=== PATIENT | female | born 1970 | race African-American/Black ===

== ENCOUNTER 2020-08-27 23:10 | Inpatient (IN) | payer OTHER ==
[~2020-08-27] VITALS: Ht 175.3 cm; Wt 300.0 kg
[~2020-08-27 23:10] MED LIST: ATEN50TA; FER325T; GEMF-19; HYDR25TA4; LISI-709; METF-372
[2020-08-28 00:42] LABS: Basophils # (auto) 0 10 ^3/uL (0-0.2); Basophils % (auto) 0.4 % (0.0-2.0); Eosinophils # (auto) 0.1 10 ^3/uL (0-0.8); Eosinophils % (auto) 1.3 % (0.0-7.0); Monocytes # (auto) 0.4 10 ^3/uL (0-1.3)
[2020-08-28 00:44] LABS: Hematocrit 32.8 % (36.0-46.0); Hemoglobin 10.6 g/dL (12.2-16.2); Lymphocytes # (auto) 0.5 10 ^3/uL (0.4-5.4); Lymphocytes % (auto) 9.2 % (10.0-50.0); Mean Corpuscular Hemoglobin 26.9 pg (28.0-32.0); Mean Corpuscular Hgb Conc. 32.3 g/dL (32.0-36.0); Mean Corpuscular Volume 83.3 fL (80.0-100.0); Monocytes % (auto) 7.2 % (0.0-12.0); Neutrophils # (auto) 4.9 10 ^3/uL (1.6-8.6); Neutrophils % (auto) 81.9 % (37.0-80.0); Red Blood Cells 3.94 10^6/uL (4.0-5.20)
[2020-08-28 01:02] LABS: Alanine Aminotransferase 15 U/L (13-56); Albumin 2.9 g/dL (3.4-5.0); Anion Gap 2 (5-15); Aspartate Aminotransferase 6 U/L (15-37); BUN/Creatinine Ratio 19.8; Blood Urea Nitrogen 16 mg/dL (7-18); Calcium 8.6 mg/dL (8.5-10.1); Carbon Dioxide 33 mmol/L (21-32); Chloride 97 mmol/L (98-107); GFR African American 96 mL/min; GFR Non-African American 79 mL/min; Glucose 206 mg/dL (74-106); Magnesium 1.9 mg/dL (1.6-2.6); Sodium 132 mmol/L (136-145)
[2020-08-28 01:07] LABS: Alkaline Phosphatase 117 U/L (45-117); Bilirubin, Total 1.3 mg/dL (0.2-1.0); Total Protein 8.3 g/dL (6.4-8.2)
[2020-08-28 01:14] LABS: INR 1.05 (0.9-1.15); Partial Thromboplastin Time 34.7 sec (23.0-31.2)
[2020-08-28] MEDS ORDERED: AZITHROMYCIN 500MG/ 250ML 250 ML IV ONE (02:15)
[2020-08-28] MEDS ORDERED: CEFEPIME 2 GM in SODIUM CHL 0.9% 50 ML IV ONE (02:15)
[2020-08-28 03:16] LABS: Urine Amorphous Crystal FEW /hpf (None Seen); Urine Bacteria FEW /hpf (None Seen); Urine Blood Negative /uL (Negative); Urine Mucus FEW (None Seen); Urine Specific Gravity 1.012 (1.001-1.035); Urine WBC 1 /hpf (0 - 5)
[2020-08-28] MEDS ORDERED: DOCUSATE SOD 100 MG CAP PO PRN (04:45)
[2020-08-28] MEDS ORDERED: REMDESIVIR PER PHARMACY 0 ML IV SCH (04:45)
[2020-08-28] MEDS ORDERED: MORPHINE SULFATE INJECTION 2 MG/ML SYRG IV PRN (04:45)
[2020-08-28] MEDS ORDERED: ONDANSETRON HCL 4 MG/2 ML VIAL IV PRN (04:45)
[2020-08-28] MEDS ORDERED: ACETAMINOPHEN 500 MG TAB PO PRN (04:45)
[2020-08-28] MEDS ORDERED: SODIUM CHLORIDE 0.9% 1,000 ML IV SCH (04:45)
[2020-08-28] MEDS ORDERED: DEXTROSE (50%) 50ML SYRG IV PRN (04:45)
[2020-08-28] MEDS ORDERED: NITROGLYCERIN 0.4 MG SL TAB SL PRN (04:45)
[2020-08-28] MEDS: InsuLIN REG 1unit/0.01ml Soln (100units/ml) SC SCH ×3 (07:00→17:46)
[2020-08-28] MEDS: ACCU-CHEK COMFORT CURVE STRIP VI SCH ×4 (07:00→22:20)
[2020-08-28] MEDS: BUDESONIDE (INHALATION) 180 MCG IH IN SCH ×2 (10:00→18:51)
[2020-08-28] MEDS ORDERED: DOXYCYCLINE 100MG/250ML 250 ML IV SCH (10:00)
[2020-08-28] MEDS ORDERED: ENOXAPARIN SOD 40 MG/0.4 ML SYRINGE SC SCH (10:00)
[2020-08-28] MEDS: CHOLECALCIFEROL (VITD3) 2,000 UNIT CAP/TAB PO SCH (10:00)
[2020-08-28] MEDS: PANTOPRAZOLE 40 MG/10 ML VIAL INJ IV SCH (10:58)
[2020-08-28] MEDS: DexAMETHasone SOD PHOS 10MG/1ML VIAL INJ IV SCH (10:58)
[2020-08-28] MEDS: ASCORBIC ACID 1,000 MG TAB PO SCH (11:00)
[2020-08-28] MEDS: ZINC SULFATE 220mg CAP or TAB PO SCH (11:00)
[2020-08-28] MEDS: MULTIPLE VITAMIN TAB PO SCH (11:00)
[2020-08-28] MEDS: ALBUTEROL SULF HFA 90MCG INH 200DOSE IN PRN (13:31)
[2020-08-28] MEDS ORDERED: PIPERACILLIN-TAZO 4.5GM 100 ML IV ONE (14:15)
[2020-08-28] MEDS ORDERED: ASPirin 81 mg TAB PO ONE (14:15)
[2020-08-28] MEDS ORDERED: REMDESIVIR 200 MG in NS 210ml LOADING DOSE ADULT IV ONE (15:00)
[2020-08-28] MEDS ORDERED: LORazepam 2MG/ML-1ML VIAL IV PRN (15:15)
[2020-08-28] MEDS ORDERED: LORazepam 2MG/ML-1ML VIAL ONE (15:29)
[2020-08-28] MEDS ORDERED: CLOP75TA70 PO (17:07)
[2020-08-28] MEDS ORDERED: IBUP800T27 PO (17:08)
[2020-08-28] MEDS ORDERED: FURO40TA4 PO ×2 (17:08→17:19)
[2020-08-28] MEDS ORDERED: LOSA-69 PO (17:19)
[2020-08-28] MEDS ORDERED: NIFE90TA49 PO (17:19)
[2020-08-28] MEDS ORDERED: LABE300T3 PO (17:19)
[2020-08-28] MEDS ORDERED: LABETALOL HCL 200 MG TAB PO ONE (17:30)
[2020-08-28] MEDS: APIXABAN 5 MG TAB PO SCH ×2 (17:38→21:16)
[2020-08-28] MEDS: MORPHINE SULFATE 4 MG/ML SYR/VIAL IV PRN (21:15)
[2020-08-28 22:00] VITALS: BP 156/84
[2020-08-28] MEDS ORDERED: PIPERACILLIN-TAZO 4.5GM 100 ML IV SCH (22:00)
[2020-08-29] MEDS: PIPERACILLIN-TAZO 4.5GM 100 ML IV SCH ×3 (02:22→18:28)
[2020-08-29] MEDS: InsuLIN REG 1unit/0.01ml Soln (100units/ml) SC SCH ×6 (02:27→22:26)
[2020-08-29] MEDS: MORPHINE SULFATE 4 MG/ML SYR/VIAL IV PRN ×2 (03:36→10:30)
[2020-08-29 06:17] VITALS: BP 154/74
[2020-08-29] MEDS: ACCU-CHEK COMFORT CURVE STRIP VI SCH ×4 (06:49→22:00)
[2020-08-29 09:00] VITALS: BP 157/77
[2020-08-29 09:55] LABS: Basophils # (auto) 0 10 ^3/uL (0-0.2); Eosinophils # (auto) 0 10 ^3/uL (0-0.8); Hemoglobin 10.2 g/dL (12.2-16.2); Lymphocytes # (auto) 0.4 10 ^3/uL (0.4-5.4); Monocytes # (auto) 0.4 10 ^3/uL (0-1.3); Monocytes % (auto) 7.3 % (0.0-12.0); Neutrophils # (auto) 4.1 10 ^3/uL (1.6-8.6); White Blood Cell 4.8 10^3/uL (4.4-10.8)
[2020-08-29 09:58] LABS: Basophils % (auto) 0.2 % (0.0-2.0); Hematocrit 31.5 % (36.0-46.0); Lymphocytes % (auto) 7.5 % (10.0-50.0); Mean Corpuscular Hemoglobin 27.4 pg (28.0-32.0); Mean Corpuscular Hgb Conc. 32.5 g/dL (32.0-36.0); Mean Corpuscular Volume 84.4 fL (80.0-100.0); Nucleated Red Blood Cells % 0.1 %; Red Blood Cells 3.73 10^6/uL (4.0-5.20); Red Cell Distribution Width 15.2 % (11.8-14.3)
[2020-08-29] MEDS: BUDESONIDE (INHALATION) 180 MCG IH IN SCH ×2 (10:00→19:23)
[2020-08-29] MEDS: DexAMETHasone SOD PHOS 10MG/1ML VIAL INJ IV SCH (10:12)
[2020-08-29] MEDS: PANTOPRAZOLE 40 MG/10 ML VIAL INJ IV SCH (10:13)
[2020-08-29] MEDS: ASPirin 81 mg TAB PO SCH (10:19)
[2020-08-29 10:20] LABS: Albumin 2.6 g/dL (3.4-5.0); Calcium 8.9 mg/dL (8.5-10.1); Potassium 4.4 mmol/L (3.5-5.1)
[2020-08-29] MEDS: ZINC SULFATE 220mg CAP or TAB PO SCH (10:20)
[2020-08-29] MEDS: APIXABAN 5 MG TAB PO SCH ×2 (10:22→22:25)
[2020-08-29] MEDS: MULTIPLE VITAMIN TAB PO SCH (10:22)
[2020-08-29 10:23] LABS: BUN/Creatinine Ratio 23.9; Bilirubin, Total 0.8 mg/dL (0.2-1.0); Total Protein 8.1 g/dL (6.4-8.2)
[2020-08-29] MEDS: ASCORBIC ACID 1,000 MG TAB PO SCH (10:25)
[2020-08-29] MEDS: CHOLECALCIFEROL (VITD3) 2,000 UNIT CAP/TAB PO SCH (10:26)
[2020-08-29] MEDS: LABETALOL HCL 200 MG TAB PO SCH (10:29)
[2020-08-29 13:00] VITALS: BP 165/64
[2020-08-29] MEDS: ALBUTEROL SULF HFA 90MCG INH 200DOSE IN PRN ×2 (14:18→19:23)
[2020-08-29] MEDS: hydrALAZINE HCL 20 MG/ML VL IV PRN (14:26)
[2020-08-29 14:54] VITALS: BP 161/87
[2020-08-29 15:15] VITALS: BP 170/79
[2020-08-29] MEDS ORDERED: LABETALOL HCL 5 MG/ML 4ML SYRINGE IV ONE ×2 (15:30→16:12)
[2020-08-29] MEDS: REMDESIVIR 100 MG in SODIUM CHL 0.9% 250 ML IV SCH (16:30)
[2020-08-29 22:00] VITALS: BP 156/96
[2020-08-30] MEDS: LORazepam 2MG/ML-1ML VIAL IV PRN ×3 (00:56→22:26)
[2020-08-30] MEDS: PIPERACILLIN-TAZO 4.5GM 100 ML IV SCH ×3 (02:00→17:41)
[2020-08-30] MEDS: MORPHINE SULFATE 4 MG/ML SYR/VIAL IV PRN ×3 (02:50→18:12)
[2020-08-30 05:00] VITALS: BP 156/76
[2020-08-30] MEDS: BUDESONIDE (INHALATION) 180 MCG IH IN SCH ×2 (06:17→20:36)
[2020-08-30] MEDS: ALBUTEROL SULF HFA 90MCG INH 200DOSE IN PRN ×2 (06:17→20:36)
[2020-08-30 06:45] LABS: Potassium 4.6 mmol/L (3.5-5.1)
[2020-08-30] MEDS: InsuLIN REG 1unit/0.01ml Soln (100units/ml) SC SCH ×4 (06:49→22:00)
[2020-08-30] MEDS: ACCU-CHEK COMFORT CURVE STRIP VI SCH ×4 (06:50→22:00)
[2020-08-30 06:53] LABS: Albumin 2.6 g/dL (3.4-5.0); BUN/Creatinine Ratio 27.8; Bilirubin, Total 0.8 mg/dL (0.2-1.0); Calcium 8.9 mg/dL (8.5-10.1); Total Protein 7.8 g/dL (6.4-8.2)
[2020-08-30 08:00] VITALS: BP 151/77
[2020-08-30] MEDS: DexAMETHasone SOD PHOS 10MG/1ML VIAL INJ IV SCH (09:43)
[2020-08-30] MEDS: PANTOPRAZOLE 40 MG/10 ML VIAL INJ IV SCH (09:44)
[2020-08-30] MEDS: LABETALOL HCL 200 MG TAB PO SCH (09:47)
[2020-08-30] MEDS: CHOLECALCIFEROL (VITD3) 2,000 UNIT CAP/TAB PO SCH (09:48)
[2020-08-30] MEDS: ZINC SULFATE 220mg CAP or TAB PO SCH (09:48)
[2020-08-30] MEDS: ASCORBIC ACID 1,000 MG TAB PO SCH (09:49)
[2020-08-30] MEDS: ASPirin 81 mg TAB PO SCH (09:49)
[2020-08-30] MEDS: APIXABAN 5 MG TAB PO SCH ×2 (09:49→22:25)
[2020-08-30] MEDS: MULTIPLE VITAMIN TAB PO SCH (09:49)
[2020-08-30 12:00] VITALS: BP 144/68
[2020-08-30] MEDS ORDERED: FUROSEMIDE 20 MG/2 ML VIAL IV ONE (12:15)
[2020-08-30] MEDS: REMDESIVIR 100 MG in SODIUM CHL 0.9% 250 ML IV SCH (15:21)
[2020-08-30] MEDS: hydrALAZINE HCL 20 MG/ML VL IV PRN (15:46)
[2020-08-30 17:00] VITALS: BP 168/76
[2020-08-30] MEDS: FUROSEMIDE 20 MG/2 ML VIAL IV SCH (17:40)
[2020-08-30 22:00] VITALS: BP 168/82
[2020-08-31] MEDS: hydrALAZINE HCL 20 MG/ML VL IV PRN ×3 (01:03→18:16)
[2020-08-31] MEDS: MORPHINE SULFATE 4 MG/ML SYR/VIAL IV PRN ×2 (01:03→12:17)
[2020-08-31] MEDS: PIPERACILLIN-TAZO 4.5GM 100 ML IV SCH ×3 (02:00→20:36)
[2020-08-31 05:00] VITALS: BP 154/95
[2020-08-31] MEDS: FUROSEMIDE 20 MG/2 ML VIAL IV SCH (06:00)
[2020-08-31] MEDS: InsuLIN REG 1unit/0.01ml Soln (100units/ml) SC SCH ×4 (06:49→21:59)
[2020-08-31] MEDS: ACCU-CHEK COMFORT CURVE STRIP VI SCH ×4 (06:52→22:18)
[2020-08-31 08:00] VITALS: BP 165/78
[2020-08-31 08:48] VITALS: BP 165/78
[2020-08-31] MEDS: PANTOPRAZOLE 40 MG/10 ML VIAL INJ IV SCH (10:14)
[2020-08-31] MEDS: ASPirin 81 mg TAB PO SCH (10:15)
[2020-08-31] MEDS: ASCORBIC ACID 1,000 MG TAB PO SCH (10:16)
[2020-08-31] MEDS: MULTIPLE VITAMIN TAB PO SCH (10:16)
[2020-08-31] MEDS: ZINC SULFATE 220mg CAP or TAB PO SCH (10:16)
[2020-08-31] MEDS: APIXABAN 5 MG TAB PO SCH ×2 (10:16→22:22)
[2020-08-31] MEDS: CHOLECALCIFEROL (VITD3) 2,000 UNIT CAP/TAB PO SCH (10:17)
[2020-08-31] MEDS: LABETALOL HCL 200 MG TAB PO SCH (10:21)
[2020-08-31] MEDS: DexAMETHasone SOD PHOS 10MG/1ML VIAL INJ IV SCH (10:21)
[2020-08-31] MEDS: BUDESONIDE (INHALATION) 180 MCG IH IN SCH ×2 (10:29→18:10)
[2020-08-31 10:30] LABS: Albumin 2.6 g/dL (3.4-5.0); Potassium 4.3 mmol/L (3.5-5.1)
[2020-08-31] MEDS: ALBUTEROL SULF HFA 90MCG INH 200DOSE IN PRN (10:30)
[2020-08-31 10:34] LABS: BUN/Creatinine Ratio 26.8; Bilirubin, Total 1.4 mg/dL (0.2-1.0); Total Protein 7.7 g/dL (6.4-8.2)
[2020-08-31 12:00] VITALS: BP 181/75
[2020-08-31] MEDS: LORazepam 2MG/ML-1ML VIAL IV PRN (13:24)
[2020-08-31 17:00] VITALS: BP 168/90
[2020-08-31] MEDS: REMDESIVIR 100 MG in SODIUM CHL 0.9% 250 ML IV SCH (18:00)
[2020-08-31] MEDS: FUROSEMIDE 40 MG/4 ML VIAL IV SCH (20:36)
[2020-08-31 22:00] VITALS: BP 186/101
[2020-09-01] MEDS: PIPERACILLIN-TAZO 4.5GM 100 ML IV SCH ×3 (02:05→17:44)
[2020-09-01] MEDS: hydrALAZINE HCL 20 MG/ML VL IV PRN (04:26)
[2020-09-01] MEDS: LORazepam 2MG/ML-1ML VIAL IV PRN (04:59)
[2020-09-01 05:40] VITALS: BP 151/83
[2020-09-01 05:58] LABS: Basophils # (auto) 0 10 ^3/uL (0-0.2); Basophils % (auto) 0.3 % (0.0-2.0); Eosinophils # (auto) 0 10 ^3/uL (0-0.8); Eosinophils % (auto) 0.4 % (0.0-7.0); Hematocrit 28.9 % (36.0-46.0); Hemoglobin 9.3 g/dL (12.2-16.2); Lymphocytes # (auto) 0.6 10 ^3/uL (0.4-5.4); Lymphocytes % (auto) 12.6 % (10.0-50.0); Mean Corpuscular Hgb Conc. 32.2 g/dL (32.0-36.0); Monocytes # (auto) 0.5 10 ^3/uL (0-1.3); Monocytes % (auto) 10.9 % (0.0-12.0); Neutrophils # (auto) 3.5 10 ^3/uL (1.6-8.6); Neutrophils % (auto) 75.8 % (37.0-80.0); Nucleated Red Blood Cells % 0.2 %; Red Blood Cells 3.43 10^6/uL (4.0-5.20); Red Cell Distribution Width 15.6 % (11.8-14.3); White Blood Cell 4.7 10^3/uL (4.4-10.8)
[2020-09-01 06:11] LABS: Potassium 4.6 mmol/L (3.5-5.1)
[2020-09-01 06:25] LABS: Albumin 2.5 g/dL (3.4-5.0); Bilirubin, Total 1.1 mg/dL (0.2-1.0); CRP High Sensitivity 13.1 mg/dL (< 0.3); Total Protein 7.5 g/dL (6.4-8.2)
[2020-09-01] MEDS: ACCU-CHEK COMFORT CURVE STRIP VI SCH ×4 (06:27→21:01)
[2020-09-01] MEDS: InsuLIN REG 1unit/0.01ml Soln (100units/ml) SC SCH ×4 (06:27→21:02)
[2020-09-01] MEDS: FUROSEMIDE 40 MG/4 ML VIAL IV SCH ×3 (06:27→17:10)
[2020-09-01 08:00] VITALS: BP 151/78
[2020-09-01] MEDS: BUDESONIDE (INHALATION) 180 MCG IH IN SCH ×2 (10:00→18:00)
[2020-09-01] MEDS: PANTOPRAZOLE 40 MG/10 ML VIAL INJ IV SCH (10:12)
[2020-09-01] MEDS: ASPirin 81 mg TAB PO SCH (10:13)
[2020-09-01] MEDS: ZINC SULFATE 220mg CAP or TAB PO SCH (10:13)
[2020-09-01] MEDS: APIXABAN 5 MG TAB PO SCH ×2 (10:14→21:01)
[2020-09-01] MEDS: MULTIPLE VITAMIN TAB PO SCH (10:14)
[2020-09-01] MEDS: ASCORBIC ACID 1,000 MG TAB PO SCH (10:14)
[2020-09-01] MEDS: LABETALOL HCL 200 MG TAB PO SCH ×2 (10:14→21:04)
[2020-09-01] MEDS: DexAMETHasone SOD PHOS 10MG/1ML VIAL INJ IV SCH (11:12)
[2020-09-01] MEDS: HYDROcodone-ACET 5/325MG TAB PO PRN ×2 (11:13→20:40)
[2020-09-01] MEDS: CHOLECALCIFEROL (VITD3) 2,000 UNIT CAP/TAB PO SCH (11:13)
[2020-09-01] MEDS: REMDESIVIR 100 MG in SODIUM CHL 0.9% 250 ML IV SCH (15:28)
[2020-09-01] MEDS: MORPHINE SULFATE 4 MG/ML SYR/VIAL IV PRN (17:54)
[2020-09-02] VITALS (10 sets, daily range): BP systolic 135–168; BP diastolic 51–80
[2020-09-02] MEDS: PIPERACILLIN-TAZO 4.5GM 100 ML IV SCH ×3 (01:43→17:23)
[2020-09-02] MEDS: MORPHINE SULFATE 4 MG/ML SYR/VIAL IV PRN ×2 (06:00→17:42)
[2020-09-02] MEDS: FUROSEMIDE 40 MG/4 ML VIAL IV SCH ×2 (06:10→17:23)
[2020-09-02 06:15] LABS: Basophils # (auto) 0 10 ^3/uL (0-0.2); Basophils % (auto) 0.5 % (0.0-2.0); Eosinophils # (auto) 0 10 ^3/uL (0-0.8); Hematocrit 28.6 % (36.0-46.0); Hemoglobin 9.1 g/dL (12.2-16.2); Lymphocytes # (auto) 0.5 10 ^3/uL (0.4-5.4); Lymphocytes % (auto) 11.9 % (10.0-50.0); Mean Corpuscular Hemoglobin 27.1 pg (28.0-32.0); Mean Corpuscular Hgb Conc. 31.7 g/dL (32.0-36.0); Mean Corpuscular Volume 85.3 fL (80.0-100.0); Monocytes # (auto) 0.5 10 ^3/uL (0-1.3); Monocytes % (auto) 10.8 % (0.0-12.0); Neutrophils # (auto) 3.3 10 ^3/uL (1.6-8.6); Neutrophils % (auto) 75.8 % (37.0-80.0); Nucleated Red Blood Cells % 0.2 %; Red Blood Cells 3.35 10^6/uL (4.0-5.20); Red Cell Distribution Width 15.5 % (11.8-14.3); White Blood Cell 4.4 10^3/uL (4.4-10.8)
[2020-09-02 06:25] LABS: Potassium 4.8 mmol/L (3.5-5.1)
[2020-09-02 06:33] LABS: BUN/Creatinine Ratio 34.9; Calcium 9.3 mg/dL (8.5-10.1)
[2020-09-02] MEDS: InsuLIN REG 1unit/0.01ml Soln (100units/ml) SC SCH ×4 (06:53→23:05)
[2020-09-02] MEDS: ACCU-CHEK COMFORT CURVE STRIP VI SCH ×4 (06:54→22:55)
[2020-09-02] MEDS: DexAMETHasone SOD PHOS 10MG/1ML VIAL INJ IV SCH (10:10)
[2020-09-02] MEDS: ZINC SULFATE 220mg CAP or TAB PO SCH (10:10)
[2020-09-02] MEDS: BUDESONIDE (INHALATION) 180 MCG IH IN SCH (10:10)
[2020-09-02] MEDS: PANTOPRAZOLE 40 MG/10 ML VIAL INJ IV SCH (10:10)
[2020-09-02] MEDS: ASPirin 81 mg TAB PO SCH (10:10)
[2020-09-02] MEDS: CHOLECALCIFEROL (VITD3) 2,000 UNIT CAP/TAB PO SCH (10:11)
[2020-09-02] MEDS: LABETALOL HCL 200 MG TAB PO SCH ×3 (10:11→22:54)
[2020-09-02] MEDS: MULTIPLE VITAMIN TAB PO SCH (10:11)
[2020-09-02] MEDS: ASCORBIC ACID 1,000 MG TAB PO SCH (10:11)
[2020-09-02] MEDS: APIXABAN 5 MG TAB PO SCH ×2 (10:11→22:54)
[2020-09-02] MEDS: LORazepam 2MG/ML-1ML VIAL IV PRN (23:06)
[2020-09-03] VITALS: BP 162/84
[2020-09-03] MEDS: PIPERACILLIN-TAZO 4.5GM 100 ML IV SCH ×3 (02:02→17:46)
[2020-09-03] MEDS: ACCU-CHEK COMFORT CURVE STRIP VI SCH ×4 (06:41→22:01)
[2020-09-03] MEDS: FUROSEMIDE 40 MG/4 ML VIAL IV SCH ×2 (06:41→17:46)
[2020-09-03 06:42] VITALS: BP 134/56
[2020-09-03] MEDS: InsuLIN REG 1unit/0.01ml Soln (100units/ml) SC SCH ×4 (06:42→22:10)
[2020-09-03 08:00] VITALS: BP 141/71
[2020-09-03] MEDS: BUDESONIDE (INHALATION) 180 MCG IH IN SCH ×2 (10:00→10:25)
[2020-09-03] MEDS: DexAMETHasone SOD PHOS 10MG/1ML VIAL INJ IV SCH (10:25)
[2020-09-03] MEDS: PANTOPRAZOLE 40 MG/10 ML VIAL INJ IV SCH (10:25)
[2020-09-03] MEDS: MULTIPLE VITAMIN TAB PO SCH (10:26)
[2020-09-03] MEDS: ASCORBIC ACID 1,000 MG TAB PO SCH (10:26)
[2020-09-03] MEDS: ZINC SULFATE 220mg CAP or TAB PO SCH (10:26)
[2020-09-03] MEDS: ASPirin 81 mg TAB PO SCH (10:26)
[2020-09-03] MEDS: CHOLECALCIFEROL (VITD3) 2,000 UNIT CAP/TAB PO SCH (10:26)
[2020-09-03] MEDS: APIXABAN 5 MG TAB PO SCH ×2 (10:26→22:00)
[2020-09-03] MEDS: LABETALOL HCL 200 MG TAB PO SCH ×2 (10:27→22:00)
[2020-09-03] MEDS: LORazepam 2MG/ML-1ML VIAL IV PRN ×2 (12:40→19:41)
[2020-09-03 16:00] VITALS: BP 160/73
[2020-09-04] VITALS: BP 144/70
[2020-09-04] MEDS: PIPERACILLIN-TAZO 4.5GM 100 ML IV SCH ×3 (01:56→18:00)
[2020-09-04] MEDS: FUROSEMIDE 40 MG/4 ML VIAL IV SCH (06:37)
[2020-09-04] MEDS: InsuLIN REG 1unit/0.01ml Soln (100units/ml) SC SCH ×4 (06:38→22:03)
[2020-09-04] MEDS: ACCU-CHEK COMFORT CURVE STRIP VI SCH ×4 (06:38→22:02)
[2020-09-04 07:42] VITALS: BP 132/51
[2020-09-04 08:00] VITALS: BP 140/64
[2020-09-04] MEDS: LABETALOL HCL 200 MG TAB PO SCH ×2 (10:00→22:02)
[2020-09-04] MEDS: MULTIPLE VITAMIN TAB PO SCH (10:00)
[2020-09-04] MEDS: ZINC SULFATE 220mg CAP or TAB PO SCH (10:00)
[2020-09-04] MEDS: PANTOPRAZOLE 40 MG/10 ML VIAL INJ IV SCH (10:00)
[2020-09-04] MEDS: ASCORBIC ACID 1,000 MG TAB PO SCH (10:00)
[2020-09-04] MEDS: BUDESONIDE (INHALATION) 180 MCG IH IN SCH ×2 (10:00→22:00)
[2020-09-04] MEDS: APIXABAN 5 MG TAB PO SCH ×2 (10:00→22:01)
[2020-09-04] MEDS: ASPirin 81 mg TAB PO SCH (10:00)
[2020-09-04] MEDS: CHOLECALCIFEROL (VITD3) 2,000 UNIT CAP/TAB PO SCH (10:00)
[2020-09-04] MEDS: DexAMETHasone SOD PHOS 10MG/1ML VIAL INJ IV SCH (10:00)
[2020-09-04 10:34] LABS: BUN/Creatinine Ratio 31.6; Calcium 8.9 mg/dL (8.5-10.1)
[2020-09-04 10:44] LABS: Basophils # (auto) 0 10 ^3/uL (0-0.2); Basophils % (auto) 0.3 % (0.0-2.0); Eosinophils # (auto) 0.2 10 ^3/uL (0-0.8); Eosinophils % (auto) 3.4 % (0.0-7.0); Hematocrit 25.1 % (36.0-46.0); Hemoglobin 8.5 g/dL (12.2-16.2); Lymphocytes # (auto) 0.6 10 ^3/uL (0.4-5.4); Lymphocytes % (auto) 12.5 % (10.0-50.0); Mean Corpuscular Hemoglobin 30.4 pg (28.0-32.0); Mean Corpuscular Hgb Conc. 33.9 g/dL (32.0-36.0); Mean Corpuscular Volume 89.7 fL (80.0-100.0); Monocytes # (auto) 0.5 10 ^3/uL (0-1.3); Monocytes % (auto) 10.9 % (0.0-12.0); Neutrophils # (auto) 3.4 10 ^3/uL (1.6-8.6); Neutrophils % (auto) 72.9 % (37.0-80.0); Nucleated Red Blood Cells % 0.3 %; Red Cell Distribution Width 15.4 % (11.8-14.3); White Blood Cell 4.7 10^3/uL (4.4-10.8)
[2020-09-04 16:00] VITALS: BP 138/69
[2020-09-04] MEDS: MORPHINE SULFATE 4 MG/ML SYR/VIAL IV PRN ×2 (16:30→22:04)
[2020-09-04 22:00] VITALS: BP 164/74
[2020-09-04 23:00] VITALS: BP 121/55
[2020-09-04] MEDS: LORazepam 2MG/ML-1ML VIAL IV PRN (23:34)
[2020-09-05] MEDS: PIPERACILLIN-TAZO 4.5GM 100 ML IV SCH ×3 (01:58→17:51)
[2020-09-05] MEDS: ACCU-CHEK COMFORT CURVE STRIP VI SCH ×4 (06:46→22:21)
[2020-09-05] MEDS: InsuLIN REG 1unit/0.01ml Soln (100units/ml) SC SCH ×4 (06:47→22:22)
[2020-09-05 08:00] VITALS: BP 154/72
[2020-09-05] MEDS: PANTOPRAZOLE 40 MG/10 ML VIAL INJ IV SCH ×2 (09:21→22:20)
[2020-09-05] MEDS: FUROSEMIDE 40 MG/4 ML VIAL IV SCH (09:23)
[2020-09-05] MEDS: DexAMETHasone SOD PHOS 10MG/1ML VIAL INJ IV SCH (09:24)
[2020-09-05] MEDS: MORPHINE SULFATE 4 MG/ML SYR/VIAL IV PRN ×3 (09:26→22:19)
[2020-09-05] MEDS: ASPirin 81 mg TAB PO SCH (09:27)
[2020-09-05] MEDS: ASCORBIC ACID 1,000 MG TAB PO SCH (09:27)
[2020-09-05] MEDS: APIXABAN 5 MG TAB PO SCH (09:28)
[2020-09-05] MEDS: ZINC SULFATE 220mg CAP or TAB PO SCH (09:28)
[2020-09-05] MEDS: CHOLECALCIFEROL (VITD3) 2,000 UNIT CAP/TAB PO SCH (09:28)
[2020-09-05] MEDS: LABETALOL HCL 200 MG TAB PO SCH ×2 (09:29→22:20)
[2020-09-05] MEDS: MULTIPLE VITAMIN TAB PO SCH (09:30)
[2020-09-05] MEDS: BUDESONIDE (INHALATION) 180 MCG IH IN SCH ×2 (09:49→22:19)
[2020-09-05 13:18] LABS: Calcium 9.5 mg/dL (8.5-10.1); Potassium 3.8 mmol/L (3.5-5.1)
[2020-09-05 15:39] VITALS: BP 153/67
[2020-09-05 18:28] VITALS: BP 146/70
[2020-09-06] VITALS: BP 151/72
[2020-09-06] MEDS: PIPERACILLIN-TAZO 4.5GM 100 ML IV SCH ×3 (02:29→17:24)
[2020-09-06 06:25] LABS: Basophils # (auto) 0 10 ^3/uL (0-0.2); Eosinophils # (auto) 0.2 10 ^3/uL (0-0.8); Hemoglobin 7.8 g/dL (12.2-16.2); Lymphocytes # (auto) 0.8 10 ^3/uL (0.4-5.4); Monocytes # (auto) 0.6 10 ^3/uL (0-1.3); Neutrophils # (auto) 3.2 10 ^3/uL (1.6-8.6); Red Blood Cells 2.68 10^6/uL (4.0-5.20); White Blood Cell 4.9 10^3/uL (4.4-10.8)
[2020-09-06 06:27] LABS: Basophils % (auto) 0.6 % (0.0-2.0); Eosinophils % (auto) 4.4 % (0.0-7.0); Hematocrit 23.2 % (36.0-46.0); Lymphocytes % (auto) 17.3 % (10.0-50.0); Mean Corpuscular Hgb Conc. 33.5 g/dL (32.0-36.0); Mean Corpuscular Volume 86.5 fL (80.0-100.0); Monocytes % (auto) 12.3 % (0.0-12.0); Neutrophils % (auto) 65.4 % (37.0-80.0); Nucleated Red Blood Cells % 0.2 %; Red Cell Distribution Width 15.8 % (11.8-14.3)
[2020-09-06] MEDS: ACCU-CHEK COMFORT CURVE STRIP VI SCH ×4 (06:31→22:45)
[2020-09-06] MEDS: InsuLIN REG 1unit/0.01ml Soln (100units/ml) SC SCH ×4 (06:32→22:45)
[2020-09-06 06:41] LABS: BUN/Creatinine Ratio 21.3; Calcium 8.7 mg/dL (8.5-10.1); Potassium 3.8 mmol/L (3.5-5.1)
[2020-09-06 07:59] VITALS: BP 139/61
[2020-09-06] MEDS: PANTOPRAZOLE 40 MG/10 ML VIAL INJ IV SCH ×2 (11:27→22:43)
[2020-09-06] MEDS: DexAMETHasone SOD PHOS 10MG/1ML VIAL INJ IV SCH (11:28)
[2020-09-06] MEDS: FUROSEMIDE 40 MG/4 ML VIAL IV SCH (11:28)
[2020-09-06] MEDS: ZINC SULFATE 220mg CAP or TAB PO SCH (11:28)
[2020-09-06] MEDS: MULTIPLE VITAMIN TAB PO SCH (11:28)
[2020-09-06] MEDS: LABETALOL HCL 200 MG TAB PO SCH ×2 (11:30→22:44)
[2020-09-06] MEDS: CHOLECALCIFEROL (VITD3) 2,000 UNIT CAP/TAB PO SCH (11:35)
[2020-09-06] MEDS: ASCORBIC ACID 1,000 MG TAB PO SCH (11:35)
[2020-09-06] MEDS: BUDESONIDE (INHALATION) 180 MCG IH IN SCH ×2 (11:37→19:35)
[2020-09-06] MEDS: MORPHINE SULFATE 4 MG/ML SYR/VIAL IV PRN ×3 (12:06→22:43)
[2020-09-06 15:59] VITALS: BP 155/64
[2020-09-06] MEDS: hydrALAZINE HCL 20 MG/ML VL IV PRN (17:38)
[2020-09-06] MEDS: ALBUTEROL SULF HFA 90MCG INH 200DOSE IN PRN (19:35)
[2020-09-07] VITALS: BP 139/66
[2020-09-07] MEDS: PIPERACILLIN-TAZO 4.5GM 100 ML IV SCH ×3 (01:53→18:30)
[2020-09-07] MEDS: ACCU-CHEK COMFORT CURVE STRIP VI SCH ×4 (06:12→22:21)
[2020-09-07] MEDS: InsuLIN REG 1unit/0.01ml Soln (100units/ml) SC SCH ×4 (06:13→22:31)
[2020-09-07 06:20] LABS: Basophils # (auto) 0 10 ^3/uL (0-0.2); Eosinophils # (auto) 0.2 10 ^3/uL (0-0.8); Hemoglobin 7.8 g/dL (12.2-16.2); Monocytes # (auto) 0.6 10 ^3/uL (0-1.3); Nucleated Red Blood Cells % 0.2 %; White Blood Cell 5.5 10^3/uL (4.4-10.8)
[2020-09-07 06:26] LABS: Basophils % (auto) 0.8 % (0.0-2.0); Eosinophils % (auto) 2.9 % (0.0-7.0); Hematocrit 23.7 % (36.0-46.0); Lymphocytes # (auto) 0.8 10 ^3/uL (0.4-5.4); Lymphocytes % (auto) 13.9 % (10.0-50.0); Mean Corpuscular Hemoglobin 27.8 pg (28.0-32.0); Mean Corpuscular Volume 84.4 fL (80.0-100.0); Monocytes % (auto) 11.6 % (0.0-12.0); Neutrophils # (auto) 3.9 10 ^3/uL (1.6-8.6); Neutrophils % (auto) 70.8 % (37.0-80.0); Red Blood Cells 2.81 10^6/uL (4.0-5.20); Red Cell Distribution Width 16.1 % (11.8-14.3)
[2020-09-07 08:00] VITALS: BP 153/61
[2020-09-07] MEDS: CHOLECALCIFEROL (VITD3) 2,000 UNIT CAP/TAB PO SCH (09:08)
[2020-09-07] MEDS: ASCORBIC ACID 1,000 MG TAB PO SCH (09:08)
[2020-09-07] MEDS: MULTIPLE VITAMIN TAB PO SCH (09:08)
[2020-09-07] MEDS: ZINC SULFATE 220mg CAP or TAB PO SCH (09:10)
[2020-09-07] MEDS: PANTOPRAZOLE 40 MG/10 ML VIAL INJ IV SCH ×2 (09:10→22:20)
[2020-09-07] MEDS: LABETALOL HCL 200 MG TAB PO SCH ×2 (09:10→22:21)
[2020-09-07] MEDS: FUROSEMIDE 40 MG/4 ML VIAL IV SCH (09:10)
[2020-09-07] MEDS: BUDESONIDE (INHALATION) 180 MCG IH IN SCH ×3 (09:13→20:26)
[2020-09-07 16:00] VITALS: BP 157/63
[2020-09-07] MEDS: ALBUTEROL SULF HFA 90MCG INH 200DOSE IN PRN (20:26)
[2020-09-08] MEDS: PIPERACILLIN-TAZO 4.5GM 100 ML IV SCH ×2 (01:51→09:32)
[2020-09-08] MEDS: ACCU-CHEK COMFORT CURVE STRIP VI SCH ×4 (06:26→20:56)
[2020-09-08] MEDS: InsuLIN REG 1unit/0.01ml Soln (100units/ml) SC SCH ×4 (06:27→21:27)
[2020-09-08] MEDS: BUDESONIDE (INHALATION) 180 MCG IH IN SCH ×2 (06:34→21:28)
[2020-09-08 06:37] LABS: Basophils # (auto) 0 10 ^3/uL (0-0.2); Eosinophils # (auto) 0.3 10 ^3/uL (0-0.8)
[2020-09-08 06:40] LABS: Basophils % (auto) 0.7 % (0.0-2.0); Eosinophils % (auto) 5.7 % (0.0-7.0); Hematocrit 24.5 % (36.0-46.0); Hemoglobin 8.2 g/dL (12.2-16.2); Lymphocytes # (auto) 0.9 10 ^3/uL (0.4-5.4); Lymphocytes % (auto) 15.4 % (10.0-50.0); Mean Corpuscular Hemoglobin 29.2 pg (28.0-32.0); Mean Corpuscular Hgb Conc. 33.3 g/dL (32.0-36.0); Mean Corpuscular Volume 87.6 fL (80.0-100.0); Monocytes # (auto) 0.7 10 ^3/uL (0-1.3); Neutrophils # (auto) 3.7 10 ^3/uL (1.6-8.6); Neutrophils % (auto) 66.2 % (37.0-80.0); Nucleated Red Blood Cells % 0.4 %; Red Cell Distribution Width 16.1 % (11.8-14.3); White Blood Cell 5.6 10^3/uL (4.4-10.8)
[2020-09-08] MEDS: ALBUTEROL SULF HFA 90MCG INH 200DOSE IN PRN (07:46)
[2020-09-08 08:00] VITALS: BP 148/68
[2020-09-08 08:43] LABS: Potassium 4.1 mmol/L (3.5-5.1)
[2020-09-08 08:53] LABS: BUN/Creatinine Ratio 15.3; Calcium 8.3 mg/dL (8.5-10.1)
[2020-09-08] MEDS: MULTIPLE VITAMIN TAB PO SCH (09:30)
[2020-09-08] MEDS: ASCORBIC ACID 1,000 MG TAB PO SCH (09:30)
[2020-09-08] MEDS: CHOLECALCIFEROL (VITD3) 2,000 UNIT CAP/TAB PO SCH (09:30)
[2020-09-08] MEDS: LABETALOL HCL 200 MG TAB PO SCH ×2 (09:30→21:26)
[2020-09-08] MEDS: ZINC SULFATE 220mg CAP or TAB PO SCH (09:30)
[2020-09-08] MEDS: FUROSEMIDE 40 MG/4 ML VIAL IV SCH (09:31)
[2020-09-08] MEDS: PANTOPRAZOLE 40 MG/10 ML VIAL INJ IV SCH ×2 (09:31→21:02)
[2020-09-08 16:00] VITALS: BP 150/67
[2020-09-08] MEDS: FERROUS SULFATE 325mg EC TAB PO SCH (18:38)
[2020-09-08] MEDS: HYDROcodone-ACET 5/325MG TAB PO PRN (21:27)
[2020-09-08] MEDS: SALINE 0.65 % NASAL SPRAY 45ML BOTTLE EACHNOSTRI SCH (21:28)
[2020-09-09] VITALS: BP 147/68
[2020-09-09] MEDS: SALINE 0.65 % NASAL SPRAY 45ML BOTTLE EACHNOSTRI SCH ×5 (03:55→22:00)
[2020-09-09] MEDS: ALBUTEROL SULF HFA 90MCG INH 200DOSE IN PRN ×2 (06:22→22:05)
[2020-09-09] MEDS: BUDESONIDE (INHALATION) 180 MCG IH IN SCH ×2 (06:22→22:05)
[2020-09-09] MEDS: ACCU-CHEK COMFORT CURVE STRIP VI SCH ×4 (07:05→22:05)
[2020-09-09] MEDS: InsuLIN REG 1unit/0.01ml Soln (100units/ml) SC SCH ×4 (07:07→21:56)
[2020-09-09 08:00] VITALS: BP 153/63
[2020-09-09] MEDS: FUROSEMIDE 40 MG/4 ML VIAL IV SCH (09:40)
[2020-09-09] MEDS: ZINC SULFATE 220mg CAP or TAB PO SCH (09:41)
[2020-09-09] MEDS: ASCORBIC ACID 1,000 MG TAB PO SCH (09:41)
[2020-09-09] MEDS: LABETALOL HCL 200 MG TAB PO SCH ×2 (09:41→22:00)
[2020-09-09] MEDS: CHOLECALCIFEROL (VITD3) 2,000 UNIT CAP/TAB PO SCH (09:41)
[2020-09-09] MEDS: MULTIPLE VITAMIN TAB PO SCH (09:41)
[2020-09-09] MEDS: FERROUS SULFATE 325mg EC TAB PO SCH ×3 (09:41→17:42)
[2020-09-09] MEDS: PANTOPRAZOLE 40 MG/10 ML VIAL INJ IV SCH ×2 (09:42→21:59)
[2020-09-09 16:00] VITALS: BP 166/80
[2020-09-09] MEDS: MORPHINE SULFATE 4 MG/ML SYR/VIAL IV PRN (20:57)
[2020-09-10] VITALS: BP 162/72
[2020-09-10] MEDS: SALINE 0.65 % NASAL SPRAY 45ML BOTTLE EACHNOSTRI SCH ×4 (06:00→22:00)
[2020-09-10 06:30] LABS: Basophils # (auto) 0 10 ^3/uL (0-0.2); Eosinophils # (auto) 0.3 10 ^3/uL (0-0.8); Hemoglobin 8.2 g/dL (12.2-16.2); Lymphocytes # (auto) 1.1 10 ^3/uL (0.4-5.4); Neutrophils # (auto) 4.3 10 ^3/uL (1.6-8.6); Nucleated Red Blood Cells % 0.1 %
[2020-09-10 06:33] LABS: Basophils % (auto) 0.7 % (0.0-2.0); Eosinophils % (auto) 4.7 % (0.0-7.0); Hematocrit 24.8 % (36.0-46.0); Lymphocytes % (auto) 16.4 % (10.0-50.0); Mean Corpuscular Hemoglobin 28.9 pg (28.0-32.0); Mean Corpuscular Hgb Conc. 33.3 g/dL (32.0-36.0); Mean Corpuscular Volume 86.8 fL (80.0-100.0); Monocytes # (auto) 0.7 10 ^3/uL (0-1.3); Monocytes % (auto) 11.3 % (0.0-12.0); Neutrophils % (auto) 66.9 % (37.0-80.0); Red Blood Cells 2.86 10^6/uL (4.0-5.20); Red Cell Distribution Width 16.3 % (11.8-14.3); White Blood Cell 6.4 10^3/uL (4.4-10.8)
[2020-09-10 06:47] LABS: BUN/Creatinine Ratio 12.5; Calcium 8.8 mg/dL (8.5-10.1); Potassium 3.4 mmol/L (3.5-5.1)
[2020-09-10] MEDS: InsuLIN REG 1unit/0.01ml Soln (100units/ml) SC SCH ×4 (06:49→22:00)
[2020-09-10] MEDS: ACCU-CHEK COMFORT CURVE STRIP VI SCH ×4 (06:53→22:00)
[2020-09-10 08:00] VITALS: BP 138/77
[2020-09-10] MEDS: FERROUS SULFATE 325mg EC TAB PO SCH ×3 (09:00→12:57)
[2020-09-10] MEDS: FUROSEMIDE 40 MG/4 ML VIAL IV SCH (09:01)
[2020-09-10] MEDS: MULTIPLE VITAMIN TAB PO SCH (09:02)
[2020-09-10] MEDS: LABETALOL HCL 200 MG TAB PO SCH ×2 (09:02→23:20)
[2020-09-10] MEDS: ZINC SULFATE 220mg CAP or TAB PO SCH (09:02)
[2020-09-10] MEDS: PANTOPRAZOLE 40 MG/10 ML VIAL INJ IV SCH ×2 (09:02→22:00)
[2020-09-10] MEDS: APIXABAN 5 MG TAB PO SCH ×2 (09:02→22:00)
[2020-09-10] MEDS: CHOLECALCIFEROL (VITD3) 2,000 UNIT CAP/TAB PO SCH (09:03)
[2020-09-10] MEDS: ASCORBIC ACID 1,000 MG TAB PO SCH (09:03)
[2020-09-10 09:27] LABS: % Iron Saturation 20.3 % (15-50)
[2020-09-10] MEDS ORDERED: POTASSIUM EFFERVESENT TAB 25 MEQ PO ONE (09:30)
[2020-09-10] MEDS: POTASSIUM EFFERVESENT TAB 25 MEQ PO SCH (10:00)
[2020-09-10] MEDS: BUDESONIDE (INHALATION) 180 MCG IH IN SCH ×2 (12:57→22:00)
[2020-09-10] MEDS ORDERED: SODIUM FERR GLUC 62.5MG/5ML 125 MG in SODIUM CHL 0.9% 100 ML IV ONE (15:00)
[2020-09-10 16:11] VITALS: BP 167/84
[2020-09-10] MEDS: hydrALAZINE HCL 20 MG/ML VL IV PRN (17:42)
[2020-09-10 18:40] VITALS: BP 167/82
[2020-09-11] VITALS: BP 159/75
[2020-09-11] MEDS: PANTOPRAZOLE 40 MG/10 ML VIAL INJ IV SCH ×3 (00:28→22:45)
[2020-09-11] MEDS: hydrALAZINE HCL 20 MG/ML VL IV PRN ×2 (00:47→22:32)
[2020-09-11] MEDS: SALINE 0.65 % NASAL SPRAY 45ML BOTTLE EACHNOSTRI SCH ×4 (06:00→17:56)
[2020-09-11] MEDS: ACCU-CHEK COMFORT CURVE STRIP VI SCH ×4 (06:24→21:58)
[2020-09-11] MEDS: InsuLIN REG 1unit/0.01ml Soln (100units/ml) SC SCH ×4 (06:37→22:28)
[2020-09-11 08:00] VITALS: BP 157/70
[2020-09-11] MEDS: BUDESONIDE (INHALATION) 180 MCG IH IN SCH ×2 (10:00→19:06)
[2020-09-11] MEDS: FUROSEMIDE 40 MG/4 ML VIAL IV SCH (10:25)
[2020-09-11] MEDS: POTASSIUM EFFERVESENT TAB 25 MEQ PO SCH (10:26)
[2020-09-11] MEDS: MULTIPLE VITAMIN TAB PO SCH (10:27)
[2020-09-11] MEDS: ASCORBIC ACID 1,000 MG TAB PO SCH (10:28)
[2020-09-11] MEDS: CHOLECALCIFEROL (VITD3) 2,000 UNIT CAP/TAB PO SCH (10:28)
[2020-09-11] MEDS: APIXABAN 5 MG TAB PO SCH ×2 (10:28→21:57)
[2020-09-11] MEDS: ZINC SULFATE 220mg CAP or TAB PO SCH (10:28)
[2020-09-11] MEDS: LABETALOL HCL 200 MG TAB PO SCH ×2 (10:30→21:58)
[2020-09-11] MEDS: ALBUTEROL SULF HFA 90MCG INH 200DOSE IN PRN ×2 (11:03→19:06)
[2020-09-11] MEDS: SODIUM FERR GLUC 62.5MG/5ML 125 MG in SODIUM CHL 0.9% 100 ML IV SCH (12:22)
[2020-09-11 16:00] VITALS: BP 152/62
[2020-09-12] VITALS: BP 140/66
[2020-09-12] MEDS: LORazepam 2MG/ML-1ML VIAL IV PRN ×2 (06:17→19:31)
[2020-09-12] MEDS: ACCU-CHEK COMFORT CURVE STRIP VI SCH ×4 (06:48→21:44)
[2020-09-12] MEDS: InsuLIN REG 1unit/0.01ml Soln (100units/ml) SC SCH ×4 (06:50→21:51)
[2020-09-12] MEDS: SALINE 0.65 % NASAL SPRAY 45ML BOTTLE EACHNOSTRI SCH ×4 (06:51→21:26)
[2020-09-12] MEDS: BUDESONIDE (INHALATION) 180 MCG IH IN SCH ×2 (10:00→19:29)
[2020-09-12] MEDS: PANTOPRAZOLE 40 MG/10 ML VIAL INJ IV SCH ×2 (10:00→22:00)
[2020-09-12] MEDS: FUROSEMIDE 40 MG/4 ML VIAL IV SCH (10:05)
[2020-09-12] MEDS: ZINC SULFATE 220mg CAP or TAB PO SCH (10:07)
[2020-09-12] MEDS: LABETALOL HCL 200 MG TAB PO SCH ×2 (10:07→21:25)
[2020-09-12] MEDS: ASCORBIC ACID 1,000 MG TAB PO SCH (10:08)
[2020-09-12] MEDS: CHOLECALCIFEROL (VITD3) 2,000 UNIT CAP/TAB PO SCH (10:08)
[2020-09-12] MEDS: MULTIPLE VITAMIN TAB PO SCH (10:08)
[2020-09-12] MEDS: POTASSIUM EFFERVESENT TAB 25 MEQ PO SCH (10:09)
[2020-09-12] MEDS: APIXABAN 5 MG TAB PO SCH ×2 (10:09→21:25)
[2020-09-12] MEDS ORDERED: cefTRIAXone 1GM/50ML D5W 50 ML IV ONE (11:30)
[2020-09-12 14:33] LABS: Basophils # (auto) 0 10 ^3/uL (0-0.2); Basophils % (auto) 0.5 % (0.0-2.0); Eosinophils # (auto) 0.2 10 ^3/uL (0-0.8); Eosinophils % (auto) 2.7 % (0.0-7.0); Hemoglobin 9.2 g/dL (12.2-16.2); Lymphocytes # (auto) 0.9 10 ^3/uL (0.4-5.4); Lymphocytes % (auto) 9.9 % (10.0-50.0); Mean Corpuscular Hemoglobin 28.4 pg (28.0-32.0); Mean Corpuscular Hgb Conc. 32.8 g/dL (32.0-36.0); Mean Corpuscular Volume 86.4 fL (80.0-100.0); Monocytes # (auto) 0.7 10 ^3/uL (0-1.3); Monocytes % (auto) 7.5 % (0.0-12.0); Neutrophils % (auto) 79.4 % (37.0-80.0); Nucleated Red Blood Cells % 0.2 %; Red Blood Cells 3.24 10^6/uL (4.0-5.20); Red Cell Distribution Width 17.4 % (11.8-14.3); White Blood Cell 8.8 10^3/uL (4.4-10.8)
[2020-09-12 16:00] VITALS: BP 152/79
[2020-09-12] MEDS: SODIUM FERR GLUC 62.5MG/5ML 125 MG in SODIUM CHL 0.9% 100 ML IV SCH (16:20)
[2020-09-12] MEDS: hydrALAZINE HCL 20 MG/ML VL IV PRN (17:37)
[2020-09-12] MEDS: ALBUTEROL SULF HFA 90MCG INH 200DOSE IN PRN (19:28)
[2020-09-13] VITALS: BP 148/68
[2020-09-13] MEDS: SALINE 0.65 % NASAL SPRAY 45ML BOTTLE EACHNOSTRI SCH ×4 (06:05→23:19)
[2020-09-13 06:09] LABS: Potassium 3.4 mmol/L (3.5-5.1)
[2020-09-13 06:14] LABS: BUN/Creatinine Ratio 9.4; Calcium 9.1 mg/dL (8.5-10.1); Magnesium 1.6 mg/dL (1.6-2.6)
[2020-09-13] MEDS: ACCU-CHEK COMFORT CURVE STRIP VI SCH ×4 (06:26→22:00)
[2020-09-13] MEDS: InsuLIN REG 1unit/0.01ml Soln (100units/ml) SC SCH ×4 (07:01→23:23)
[2020-09-13 08:00] VITALS: BP 151/69
[2020-09-13] MEDS: cefTRIAXone 1GM/50ML D5W 50 ML IV SCH (08:44)
[2020-09-13] MEDS: FUROSEMIDE 40 MG/4 ML VIAL IV SCH (08:45)
[2020-09-13] MEDS: ZINC SULFATE 220mg CAP or TAB PO SCH (08:46)
[2020-09-13] MEDS: LABETALOL HCL 200 MG TAB PO SCH ×2 (08:47→23:21)
[2020-09-13] MEDS: POTASSIUM EFFERVESENT TAB 25 MEQ PO SCH (08:47)
[2020-09-13] MEDS: APIXABAN 5 MG TAB PO SCH ×2 (08:48→23:19)
[2020-09-13] MEDS: ASCORBIC ACID 1,000 MG TAB PO SCH (08:50)
[2020-09-13] MEDS: MULTIPLE VITAMIN TAB PO SCH (08:50)
[2020-09-13] MEDS: CHOLECALCIFEROL (VITD3) 2,000 UNIT CAP/TAB PO SCH (08:50)
[2020-09-13] MEDS: BUDESONIDE (INHALATION) 180 MCG IH IN SCH ×2 (08:52→18:53)
[2020-09-13 09:54] LABS: Urine Bacteria FEW /hpf (None Seen); Urine Blood 2+ /uL (Negative); Urine Hyaline Cast FEW /lpf (0 - 2); Urine Specific Gravity 1.007 (1.001-1.035); Urine WBC 378 /hpf (0 - 5); Urine WBC Clumps PRESENT /hpf (None Seen)
[2020-09-13] MEDS: PANTOPRAZOLE 40 MG/10 ML VIAL INJ IV SCH ×2 (10:00→22:00)
[2020-09-13] MEDS: SODIUM FERR GLUC 62.5MG/5ML 125 MG in SODIUM CHL 0.9% 100 ML IV SCH (12:09)
[2020-09-13] MEDS ORDERED: MAGNESIUM SULFATE 1GM/100ML 100 ML IV ONE (12:45)
[2020-09-13] MEDS ORDERED: POTASSIUM CHL 20 Meq TABLET PO ONE (12:45)
[2020-09-13 16:30] VITALS: BP 157/72
[2020-09-13] MEDS: hydrALAZINE HCL 20 MG/ML VL IV PRN (17:14)
[2020-09-13] MEDS: ALBUTEROL SULF HFA 90MCG INH 200DOSE IN PRN (18:53)
[2020-09-13] MEDS: LORazepam 2MG/ML-1ML VIAL IV PRN (20:59)
[2020-09-14] VITALS: BP 148/64
[2020-09-14 05:46] LABS: Hematocrit 26.2 % (36.0-46.0); Hemoglobin 8.5 g/dL (12.2-16.2)
[2020-09-14 06:04] LABS: Magnesium 1.6 mg/dL (1.6-2.6); Potassium 3.4 mmol/L (3.5-5.1)
[2020-09-14] MEDS: SALINE 0.65 % NASAL SPRAY 45ML BOTTLE EACHNOSTRI SCH ×4 (06:30→22:05)
[2020-09-14] MEDS: ACCU-CHEK COMFORT CURVE STRIP VI SCH ×4 (06:30→22:02)
[2020-09-14] MEDS: InsuLIN REG 1unit/0.01ml Soln (100units/ml) SC SCH ×4 (06:31→22:04)
[2020-09-14] MEDS: ALBUTEROL SULF HFA 90MCG INH 200DOSE IN PRN (06:33)
[2020-09-14] MEDS: BUDESONIDE (INHALATION) 180 MCG IH IN SCH ×2 (06:33→22:00)
[2020-09-14 08:20] VITALS: BP 141/60
[2020-09-14] MEDS: PANTOPRAZOLE 40 MG/10 ML VIAL INJ IV SCH ×2 (10:00→22:00)
[2020-09-14] MEDS: CHOLECALCIFEROL (VITD3) 2,000 UNIT CAP/TAB PO SCH (10:00)
[2020-09-14] MEDS: cefTRIAXone 1GM/50ML D5W 50 ML IV SCH (10:12)
[2020-09-14] MEDS: FUROSEMIDE 40 MG/4 ML VIAL IV SCH (10:12)
[2020-09-14] MEDS: ZINC SULFATE 220mg CAP or TAB PO SCH (10:13)
[2020-09-14] MEDS: MULTIPLE VITAMIN TAB PO SCH (10:13)
[2020-09-14] MEDS: APIXABAN 5 MG TAB PO SCH ×2 (10:13→22:04)
[2020-09-14] MEDS: LABETALOL HCL 200 MG TAB PO SCH ×2 (10:14→22:02)
[2020-09-14] MEDS: ASCORBIC ACID 1,000 MG TAB PO SCH (10:14)
[2020-09-14] MEDS: POTASSIUM EFFERVESENT TAB 25 MEQ PO SCH (11:34)
[2020-09-14] MEDS: SODIUM FERR GLUC 62.5MG/5ML 125 MG in SODIUM CHL 0.9% 100 ML IV SCH (12:34)
[2020-09-14] MEDS ORDERED: POTASSIUM CHL 20 Meq TABLET PO ONE (15:15)
[2020-09-14] MEDS ORDERED: MAGNESIUM SULFATE 1GM/100ML 100 ML IV ONE (15:15)
[2020-09-14 17:11] VITALS: BP 141/60
[2020-09-15] VITALS: BP 157/71
[2020-09-15] MEDS: ALBUTEROL SULF HFA 90MCG INH 200DOSE IN PRN (00:16)
[2020-09-15] MEDS: MORPHINE SULFATE 4 MG/ML SYR/VIAL IV PRN (00:40)
[2020-09-15] MEDS: ACCU-CHEK COMFORT CURVE STRIP VI SCH ×3 (06:13→17:14)
[2020-09-15] MEDS: SALINE 0.65 % NASAL SPRAY 45ML BOTTLE EACHNOSTRI SCH ×2 (06:13→11:51)
[2020-09-15] MEDS: InsuLIN REG 1unit/0.01ml Soln (100units/ml) SC SCH ×3 (06:18→17:16)
[2020-09-15 06:42] LABS: BUN/Creatinine Ratio 10.3; Calcium 8.9 mg/dL (8.5-10.1); Magnesium 1.8 mg/dL (1.6-2.6); Potassium 3.7 mmol/L (3.5-5.1)
[2020-09-15 08:00] VITALS: BP 133/70
[2020-09-15] MEDS: cefTRIAXone 1GM/50ML D5W 50 ML IV SCH (09:24)
[2020-09-15] MEDS: ASCORBIC ACID 1,000 MG TAB PO SCH (09:25)
[2020-09-15] MEDS: PANTOPRAZOLE 40 MG/10 ML VIAL INJ IV SCH (09:25)
[2020-09-15] MEDS: FUROSEMIDE 40 MG/4 ML VIAL IV SCH (09:25)
[2020-09-15] MEDS: POTASSIUM EFFERVESENT TAB 25 MEQ PO SCH (09:25)
[2020-09-15] MEDS: ZINC SULFATE 220mg CAP or TAB PO SCH (09:26)
[2020-09-15] MEDS: APIXABAN 5 MG TAB PO SCH (09:26)
[2020-09-15] MEDS: LABETALOL HCL 200 MG TAB PO SCH (09:26)
[2020-09-15] MEDS: CHOLECALCIFEROL (VITD3) 2,000 UNIT CAP/TAB PO SCH (09:27)
[2020-09-15] MEDS: MULTIPLE VITAMIN TAB PO SCH (09:27)
[2020-09-15] MEDS: BUDESONIDE (INHALATION) 180 MCG IH IN SCH ×2 (09:27→09:44)
[2020-09-15] MEDS: SODIUM FERR GLUC 62.5MG/5ML 125 MG in SODIUM CHL 0.9% 100 ML IV SCH (11:51)
[2020-09-15] MEDS ORDERED: MAGNESIUM SULFATE 1GM/100ML 100 ML IV ONE (13:15)
[2020-09-15] MEDS ORDERED: PANT40TA2 PO (13:21)
[2020-09-15] MEDS ORDERED: BUDE2SUS3 IN (13:21)
[2020-09-15] MEDS ORDERED: ZINC220T6 PO (13:21)
[2020-09-15] MEDS ORDERED: CHOL1CAP47 PO (13:21)
[2020-09-15] MEDS ORDERED: ASCO10003 PO (13:21)
[2020-09-15] MEDS ORDERED: ALBUAER3 IN (13:21)
[2020-09-15] MEDS ORDERED: LEVO500T31 PO (13:21)
[2020-09-15] MEDS ORDERED: ASPI-378 PO (13:26)
[2020-09-15 15:50] VITALS: BP 156/73
== END 2020-09-15 17:00 | disposition home health service (06) | DRG 720 ==
LOC: EDBD 23:10 → ER 23:13 → TELE 23:14 → TELE-WESTW 08-28 16:01
PROVIDERS: ADMIT Nurse Practitioner Family; ATTEND Internal Medicine
PROC: XW033E5 Introduction of Remdesivir Anti-infective into Peripheral Vein, Percutaneous Approach, New Technology Group 5 (ICD-10-PCS; 2020-08-28)
PROC: XW13325 Transfusion of Convalescent Plasma (Nonautologous) into Peripheral Vein, Percutaneous Approach, New Technology Group 5 (ICD-10-PCS; principal; 2020-08-29)
PROC: 5A09357 Assistance with Respiratory Ventilation, Less than 24 Consecutive Hours, Continuous Positive Airway Pressure (ICD-10-PCS; 2020-08-31)
PROC: 5A09357 Assistance with Respiratory Ventilation, Less than 24 Consecutive Hours, Continuous Positive Airway Pressure (ICD-10-PCS; 2020-09-01)
PROC: 5A09357 Assistance with Respiratory Ventilation, Less than 24 Consecutive Hours, Continuous Positive Airway Pressure (ICD-10-PCS; 2020-09-03)
PROC: 5A09357 Assistance with Respiratory Ventilation, Less than 24 Consecutive Hours, Continuous Positive Airway Pressure (ICD-10-PCS; 2020-09-04)
PROC: 5A09357 Assistance with Respiratory Ventilation, Less than 24 Consecutive Hours, Continuous Positive Airway Pressure (ICD-10-PCS; 2020-09-05)
PROC: 5A09357 Assistance with Respiratory Ventilation, Less than 24 Consecutive Hours, Continuous Positive Airway Pressure (ICD-10-PCS; 2020-09-06)
PROC: 5A09357 Assistance with Respiratory Ventilation, Less than 24 Consecutive Hours, Continuous Positive Airway Pressure (ICD-10-PCS; 2020-09-07)
PROC: 5A09357 Assistance with Respiratory Ventilation, Less than 24 Consecutive Hours, Continuous Positive Airway Pressure (ICD-10-PCS; 2020-09-09)
PROC: 5A09357 Assistance with Respiratory Ventilation, Less than 24 Consecutive Hours, Continuous Positive Airway Pressure (ICD-10-PCS; 2020-09-10)
PROC: 5A09357 Assistance with Respiratory Ventilation, Less than 24 Consecutive Hours, Continuous Positive Airway Pressure (ICD-10-PCS; 2020-09-11)
PROC: 5A09357 Assistance with Respiratory Ventilation, Less than 24 Consecutive Hours, Continuous Positive Airway Pressure (ICD-10-PCS; 2020-09-12)
PROC: 5A09357 Assistance with Respiratory Ventilation, Less than 24 Consecutive Hours, Continuous Positive Airway Pressure (ICD-10-PCS; 2020-09-14)
PROC: 5A09357 Assistance with Respiratory Ventilation, Less than 24 Consecutive Hours, Continuous Positive Airway Pressure (ICD-10-PCS; 2020-09-15)
DX: A41.89 Other specified sepsis (principal); U07.1 COVID-19; E43 Unspecified severe protein-calorie malnutrition; J96.21 Acute and chronic respiratory failure with hypoxia; J12.82 Pneumonia due to coronavirus disease 2019; G93.41 Metabolic encephalopathy; E66.01 Morbid (severe) obesity due to excess calories; J44.1 Chronic obstructive pulmonary disease with (acute) exacerbation; Z68.45 Body mass index [BMI] 70 or greater, adult; E11.65 Type 2 diabetes mellitus with hyperglycemia; I11.0 Hypertensive heart disease with heart failure; I50.32 Chronic diastolic (congestive) heart failure; J44.0 Chronic obstructive pulmonary disease with (acute) lower respiratory infection; R65.20 Severe sepsis without septic shock; N39.0 Urinary tract infection, site not specified; B96.20 Unspecified Escherichia coli [E. coli] as the cause of diseases classified elsewhere; D63.8 Anemia in other chronic diseases classified elsewhere; D89.839 Cytokine release syndrome, grade unspecified; Z88.8 Allergy status to other drugs, medicaments and biological substances
CPT/HCPCS: 36415; 36600; 51702; 71045; 80048; 80053; 81001; 82270; 82728; 82805; 82962; 83036; 83540; 83550; 83605; 83615; 83735; 83880; 84132; 84484; 85014; 85018; 85025; 85379; 85610; 85730; 86141; 86850; 86900; 86901; 87040; 87086; 87088; 87186; 87426; 93005; 94640; 94660; 96365; 96366; 96367; 96375; 97110; C9113; G0378; J0696; J1100; J1815; J2405; J2543; J3490

== ENCOUNTER 2021-01-06 18:54 | Observation (INO) | payer OTHER ==
[~2021-01-06] VITALS: Ht 172.7 cm; Wt 343.4 kg
[~2021-01-06 18:54] MED LIST changes: +ALBUAER3 IN; +ASCO10003 PO; +ASPI-378 PO; +BUDE2SUS3 IN; +CHOL1CAP47 PO; +CLOP75TA70 PO; +FURO40TA4 PO; +IBUP800T27 PO; +LABE300T3 PO; +LEVO500T31 PO; +LOSA-69 PO; +NIFE90TA49 PO; +PANT40TA2 PO; +ZINC220T6 PO
[2021-01-06 22:54] LABS: Basophils # (auto) 0 10 ^3/uL (0-0.2); Basophils % (auto) 0.7 % (0.0-2.0); Eosinophils # (auto) 0.5 10 ^3/uL (0-0.8); Hematocrit 32.1 % (36.0-46.0); Hemoglobin 10.7 g/dL (12.2-16.2); Lymphocytes # (auto) 0.8 10 ^3/uL (0.4-5.4); Lymphocytes % (auto) 13.6 % (10.0-50.0); Mean Corpuscular Hemoglobin 29.8 pg (28.0-32.0); Mean Corpuscular Hgb Conc. 33.3 g/dL (32.0-36.0); Mean Corpuscular Volume 89.4 fL (80.0-100.0); Monocytes # (auto) 0.4 10 ^3/uL (0-1.3); Monocytes % (auto) 6.7 % (0.0-12.0); Neutrophils # (auto) 4.1 10 ^3/uL (1.6-8.6); Nucleated Red Blood Cells % 0.2 %; Platelet Count (auto) 381 10^3/uL (140-450); Red Blood Cells 3.59 10^6/uL (4.0-5.20); White Blood Cell 5.8 10^3/uL (4.4-10.8)
[2021-01-06 23:18] LABS: Calcium 8.7 mg/dL (8.5-10.1); Potassium 3.7 mmol/L (3.5-5.1)
[2021-01-06 23:26] LABS: BUN/Creatinine Ratio 17.6; Bilirubin, Total 0.8 mg/dL (0.2-1.0); CRP High Sensitivity 6.04 mg/dL (< 0.3); Total Protein 7.1 g/dL (6.4-8.2)
[2021-01-07] MEDS ORDERED: HYDROcodone-ACET 7.5/325MG TAB PO ONE (00:15)
[2021-01-07] MEDS ORDERED: CLINDAMYCIN 600MG IV 50 ML IV ONE (03:15)
[2021-01-07] MEDS ORDERED: VANCOMYCIN 1GM/250ML 250 ML IV ONE (03:15)
[2021-01-07 05:43] LABS: Urine Bacteria FEW /hpf (None Seen); Urine Blood 3+ /uL (Negative); Urine Specific Gravity 1.011 (1.001-1.035); Urine WBC 4 /hpf (0 - 5)
[2021-01-07] MEDS: HYDROcodone-ACET 7.5/325MG TAB PO PRN ×3 (08:27→23:20)
[2021-01-07] MEDS ORDERED: CEFTRIAXONE SODIUM 2 GM in D5W 5% 50 ML IV ONE (12:00)
[2021-01-07] MEDS ORDERED: CLINDAMYCIN 900MG IV 50 ML IV ONE (12:00)
[2021-01-07] MEDS ORDERED: LABE300T3 PO (15:45)
[2021-01-07] MEDS ORDERED: INSU1INJ19 SC (15:45)
[2021-01-07] MEDS ORDERED: CLOP75TA28 PO (15:45)
[2021-01-07] MEDS ORDERED: POTA10TA32 PO (15:45)
[2021-01-07] MEDS ORDERED: INSU100I27 SC (15:45)
[2021-01-07] MEDS ORDERED: MORPHINE SULF INJ 2 MG/ML SYRINGE 1ML IV PRN (16:45)
[2021-01-07] MEDS ORDERED: MORPHINE SULFATE 4 MG/ML SYR/VIAL IV PRN (16:45)
[2021-01-07] MEDS ORDERED: ONDANSETRON HCL 4 MG/2 ML VIAL IV PRN (16:45)
[2021-01-07] MEDS: SODIUM CHLORIDE 0.9% 1,000 ML IV SCH (16:45)
[2021-01-07] MEDS ORDERED: NITROGLYCERIN 0.4 MG SL TAB SL PRN (16:45)
[2021-01-07] MEDS ORDERED: DOCUSATE CALCIUM 240 MG CAP PO PRN (16:45)
[2021-01-07] MEDS ORDERED: LORazepam 0.5 MG TAB PO PRN (16:45)
[2021-01-07] MEDS ORDERED: ACETAMINOPHEN 500 MG TAB PO PRN (16:45)
[2021-01-07] MEDS ORDERED: TETANUS-DIPTH-ACEL PERTUSSIS 0.5ML SYR Tdap IM ONE (16:45)
[2021-01-07] MEDS ORDERED: LABETALOL HCL 5 MG/ML 4ML SYRINGE IV PRN (16:45)
[2021-01-07] MEDS ORDERED: DEXTROSE (50%) 50ML SYRG IV PRN (16:45)
[2021-01-07] MEDS: POTASSIUM CHLORIDE 8 MEQ TAB PO SCH ×2 (17:05→21:16)
[2021-01-07] MEDS: FUROSEMIDE 40 MG TAB PO SCH (18:16)
[2021-01-07 18:23] LABS: Basophils # (auto) 0 10 ^3/uL (0-0.2); Basophils % (auto) 0.2 % (0.0-2.0); Eosinophils # (auto) 0.5 10 ^3/uL (0-0.8); Eosinophils % (auto) 5.8 % (0.0-7.0); Hematocrit 31.8 % (36.0-46.0); Hemoglobin 10.5 g/dL (12.2-16.2); Lymphocytes # (auto) 0.7 10 ^3/uL (0.4-5.4); Lymphocytes % (auto) 8.3 % (10.0-50.0); Mean Corpuscular Hemoglobin 29.5 pg (28.0-32.0); Mean Corpuscular Hgb Conc. 32.9 g/dL (32.0-36.0); Mean Corpuscular Volume 89.4 fL (80.0-100.0); Monocytes # (auto) 0.5 10 ^3/uL (0-1.3); Monocytes % (auto) 6.2 % (0.0-12.0); Neutrophils # (auto) 6.5 10 ^3/uL (1.6-8.6); Neutrophils % (auto) 79.5 % (37.0-80.0); Nucleated Red Blood Cells % 0.1 %; Platelet Count (auto) 394 10^3/uL (140-450); Red Blood Cells 3.55 10^6/uL (4.0-5.20); Red Cell Distribution Width 15.1 % (11.8-14.3); White Blood Cell 8.1 10^3/uL (4.4-10.8)
[2021-01-07 18:31] LABS: Albumin 2.6 g/dL (3.4-5.0); Calcium 8.5 mg/dL (8.5-10.1); Potassium 3.7 mmol/L (3.5-5.1)
[2021-01-07 18:34] LABS: BUN/Creatinine Ratio 12.5; Bilirubin, Total 0.8 mg/dL (0.2-1.0); Total Protein 6.5 g/dL (6.4-8.2)
[2021-01-07 18:41] LABS: INR 1.04 (0.9-1.15)
[2021-01-07] MEDS: InsuLIN REG 1unit/0.01ml Soln (100units/ml) SC SCH (20:00)
[2021-01-07] MEDS: ACCU-CHEK COMFORT CURVE STRIP VI SCH (20:00)
[2021-01-07] MEDS ORDERED: INSULIN LISPRO SC SCH (20:00)
[2021-01-07] MEDS: CLINDAMYCIN 600MG IV 50 ML IV SCH (21:18)
[2021-01-07] MEDS: LABETALOL HCL 200 MG TAB PO SCH (21:34)
[2021-01-07] MEDS ORDERED: IBUPROFEN 800 MG TAB PO PRN (22:00)
[2021-01-07] MEDS ORDERED: Insulin Glargine (Basaglar Kwikpen) SC SCH (22:00)
[2021-01-07 22:59] VITALS: BP 146/60
[2021-01-08] MEDS: ACCU-CHEK COMFORT CURVE STRIP VI SCH ×7 (00:16→23:34)
[2021-01-08] MEDS: InsuLIN REG 1unit/0.01ml Soln (100units/ml) SC SCH ×7 (00:17→23:45)
[2021-01-08] MEDS: SODIUM CHLORIDE 0.9% 1,000 ML IV SCH ×2 (04:08→19:25)
[2021-01-08] MEDS: CLINDAMYCIN 600MG IV 50 ML IV SCH ×3 (05:24→22:32)
[2021-01-08] MEDS: POTASSIUM CHLORIDE 8 MEQ TAB PO SCH ×3 (05:24→22:32)
[2021-01-08] MEDS: FUROSEMIDE 40 MG TAB PO SCH ×2 (05:25→18:24)
[2021-01-08] MEDS: HYDROcodone-ACET 7.5/325MG TAB PO PRN ×3 (05:26→21:07)
[2021-01-08] MEDS: LABETALOL HCL 200 MG TAB PO SCH ×3 (05:31→22:43)
[2021-01-08 05:32] VITALS: BP 116/53
[2021-01-08 09:00] VITALS: BP 127/66
[2021-01-08] MEDS ORDERED: cefTRIAXone 1GM/50ML D5W 50 ML IV SCH (09:00)
[2021-01-08 09:15] LABS: Basophils # (auto) 0.1 10 ^3/uL (0-0.2); Basophils % (auto) 0.9 % (0.0-2.0); Eosinophils # (auto) 0.4 10 ^3/uL (0-0.8); Eosinophils % (auto) 6.5 % (0.0-7.0); Hematocrit 29.4 % (36.0-46.0); Hemoglobin 9.7 g/dL (12.2-16.2); Lymphocytes # (auto) 1.1 10 ^3/uL (0.4-5.4); Mean Corpuscular Hemoglobin 29.4 pg (28.0-32.0); Mean Corpuscular Volume 89.2 fL (80.0-100.0); Monocytes # (auto) 0.6 10 ^3/uL (0-1.3); Monocytes % (auto) 8.9 % (0.0-12.0); Neutrophils # (auto) 4.4 10 ^3/uL (1.6-8.6); Neutrophils % (auto) 67.7 % (37.0-80.0); Platelet Count (auto) 361 10^3/uL (140-450); Red Cell Distribution Width 15.1 % (11.8-14.3); White Blood Cell 6.6 10^3/uL (4.4-10.8)
[2021-01-08] MEDS ORDERED: PANTOPRAZOLE 40 MG TAB PO SCH ×2 (10:00)
[2021-01-08] MEDS ORDERED: CLOPIDOGREL BISULFATE 75 MG TAB PO SCH (10:00)
[2021-01-08] MEDS ORDERED: NIFEdipine ER 30 MG TAB PO SCH (10:00)
[2021-01-08] MEDS ORDERED: LOSARTAN POTASSIUM 50 MG TAB PO SCH (10:00)
[2021-01-08] MEDS ORDERED: ENOXAPARIN SOD 80 MG/0.8ML SYRINGE SC SCH (10:00)
[2021-01-08 13:00] VITALS: BP 129/59
[2021-01-08 17:00] VITALS: BP 138/68
[2021-01-08 23:21] VITALS: BP 156/76
[2021-01-09 00:20] VITALS: BP 118/71
== END 2021-01-09 01:08 | disposition home or self-care (01) ==
LOC: EDBD 18:54 → ER 18:58 → INTOOBSV 01-07 17:10 → WEST WING 01-07 17:10
PROVIDERS: ADMIT Family Medicine; ATTEND Internal Medicine
DX: L03.312 Cellulitis of back [any part except buttock and flank] (principal); Z20.822 Contact with and (suspected) exposure to COVID-19; B35.6 Tinea cruris; B96.4 Proteus (mirabilis) (morganii) as the cause of diseases classified elsewhere; E11.21 Type 2 diabetes mellitus with diabetic nephropathy; I11.0 Hypertensive heart disease with heart failure; I50.9 Heart failure, unspecified; D63.8 Anemia in other chronic diseases classified elsewhere; J44.9 Chronic obstructive pulmonary disease, unspecified; E78.5 Hyperlipidemia, unspecified; E66.01 Morbid (severe) obesity due to excess calories; Z79.82 Long term (current) use of aspirin; Z79.899 Other long term (current) drug therapy; Z86.73 Personal history of transient ischemic attack (TIA), and cerebral infarction without residual deficits; Z74.01 Bed confinement status; Z23 Encounter for immunization
CPT/HCPCS: 36415; 73590; 76705; 80053; 81001; 82962; 83036; 83605; 83735; 83880; 84443; 85025; 85610; 85652; 86141; 87040; 87077; 87186; 87205; 87426; 90471; 90715; 96361; 96365; 96366; 96367; 96372; 99285; G0378; J0696; J1815; J3370; J3490; J7030; J7060

== ENCOUNTER 2021-01-14 20:18 | Emergency (ER) | payer OTHER ==
[~2021-01-14] VITALS: Ht 165.1 cm; Wt 385.6 kg
[~2021-01-14 20:18] MED LIST changes: +CLOP75TA28 PO; +INSU100I27 SC; +INSU1INJ19 SC; +POTA10TA32 PO
[2021-01-14 21:43] LABS: Basophils # (auto) 0 10 ^3/uL (0-0.2); Basophils % (auto) 0.3 % (0.0-2.0); Eosinophils # (auto) 0.6 10 ^3/uL (0-0.8); Eosinophils % (auto) 7.3 % (0.0-7.0); Hematocrit 31.3 % (36.0-46.0); Hemoglobin 10.4 g/dL (12.2-16.2); Lymphocytes # (auto) 1.1 10 ^3/uL (0.4-5.4); Mean Corpuscular Hemoglobin 29.5 pg (28.0-32.0); Mean Corpuscular Hgb Conc. 33.2 g/dL (32.0-36.0); Monocytes # (auto) 0.7 10 ^3/uL (0-1.3); Monocytes % (auto) 8.1 % (0.0-12.0); Neutrophils # (auto) 5.8 10 ^3/uL (1.6-8.6); Neutrophils % (auto) 71.3 % (37.0-80.0); Red Blood Cells 3.52 10^6/uL (4.0-5.20); Red Cell Distribution Width 15.3 % (11.8-14.3); White Blood Cell 8.1 10^3/uL (4.4-10.8)
[2021-01-14 22:00] LABS: Albumin 2.8 g/dL (3.4-5.0); Anion Gap 9 (5-15); Blood Urea Nitrogen 13 mg/dL (7-18); Calcium 8.4 mg/dL (8.5-10.1); Carbon Dioxide 30 mmol/L (21-32); Chloride 100 mmol/L (98-107); Glucose 141 mg/dL (74-106); Potassium 3.6 mmol/L (3.5-5.1); Sodium 139 mmol/L (136-145)
[2021-01-14 22:02] LABS: INR 1.03 (0.9-1.15); Partial Thromboplastin Time 27.4 sec (23.0-31.2)
[2021-01-14 22:05] LABS: Alanine Aminotransferase 13 U/L (13-56); Alkaline Phosphatase 53 U/L (45-117); Aspartate Aminotransferase 10 U/L (15-37); Bilirubin, Total 0.6 mg/dL (0.2-1.0); GFR African American 95 mL/min; GFR Non-African American 79 mL/min; Total Protein 6.6 g/dL (6.4-8.2)
[2021-01-14] MEDS ORDERED: cefTRIAXone 1GM/50ML D5W 50 ML IV ONE (22:30)
[2021-01-14] MEDS ORDERED: CLINDAMYCIN 600MG IV 50 ML IV ONE (22:30)
[2021-01-14] MEDS ORDERED: HYDROcodone-ACET 5/325MG TAB PO ONE (23:15)
[2021-01-15] MEDS ORDERED: ACETAMINOPHEN 325 MG TAB PO ONE (04:15)
[2021-01-15] MEDS ORDERED: HYDROcodone-ACET 5/325MG TAB PO ONE (05:00)
[2021-01-15] MEDS ORDERED: HYDROcodone-ACET 10/325MG TAB PO ONE (13:45)
[2021-01-15 15:54] VITALS: BP 147/52
== END 2021-01-15 02:12 | disposition home or self-care (01) ==
LOC: ER 20:18 → EDBD 20:18 → ER 01-15 02:12
DX: L03.116 Cellulitis of left lower limb (principal); L03.115 Cellulitis of right lower limb; I11.0 Hypertensive heart disease with heart failure; I50.9 Heart failure, unspecified; J44.9 Chronic obstructive pulmonary disease, unspecified; Z79.4 Long term (current) use of insulin; Z79.899 Other long term (current) drug therapy; Z88.8 Allergy status to other drugs, medicaments and biological substances; Z20.822 Contact with and (suspected) exposure to COVID-19
CPT/HCPCS: 36415; 80053; 83605; 83880; 84484; 85025; 85610; 85730; 87426; 93005; 96365; 96366; 96368; 99285; J0696; J3490